=== PATIENT | male | born 2000 | race Caucasian/White ===

== ENCOUNTER 2022-05-27 19:32 | Emergency (ER) | payer OTHER, SELFPAY ==
[2022-05-27 19:32] VITALS: BP 127/73; PULSE 110; RESP 16; TEMP 36.7; O2SAT 99; BMI 24.3
[2022-05-27 20:10] LABS: Basophils # 0.1 K/mm3 (0-0.2); Basophils % 1.3 % (0.1-2.0); Eosinophils # 0.2 K/mm3 (0.0-0.4); Eosinophils % 2.8 % (0.1-12.0); Hematocrit 49.2 % (42.0-52.0); Hemoglobin 16.2 g/dL (14.1-18.0); Lymphocytes # 0.7 K/mm3 (0.7-4.5); Lymphocytes % 11.2 % (10-50); Mean Corpuscular HGB Conc 32.9 g/dL (31.8-35.4); Mean Corpuscular Hemoglobin 30.2 pg (27.0-31.2); Mean Corpuscular Volume 91.8 fl (80-94); Mean Platelet Volume 8.1 fl (7.4-10.4); Monocytes # 0.4 K/mm3 (0.1-1.0); Monocytes % 6.8 % (1.7-9.3); Neutrophils # 4.9 K/mm3 (1.8-7.8); Neutrophils % 77.9 % (37.0-80.0); Platelet Count 236 K/mm3 (142-424); Red Blood Count 5.35 M/mm3 (4.60-6.20); Red Cell Distribution Width 13.3 % (11.5-17.5); White Blood Count 6.3 K/mm3 (4.8-10.8)
[2022-05-27 20:22] LABS: Chloride 103 mmol/L (98-107); Sodium 140 mmol/L (136-145)
[2022-05-27 20:25] LABS: Alanine Aminotransferase 19 U/L (12-78); Albumin Level 4.7 g/dl (3.5-5.0); Albumin/Globulin Ratio 1.4 (1.1-1.8); Alkaline Phosphatase 95 U/L (38-126); Aspartate Amino Transferase 29 U/L (17-59); Bilirubin,Total 1.4 mg/dl (0.2-1.3); Blood Urea Nitrogen 15 mg/dl (9-20); Calcium 9.1 mg/dl (8.4-10.2); Carbon Dioxide 26 mmol/L (22.0-30.0); Creatinine Clearance Estimated 167 mL/min (50-200); Estimated Glomerular Filt Rate 107 ml/min (>60); GFR (African American) 129 ML/MIN (>60); Globulin 3.3 g/dL (1.3-3.2); Glucose 109 mg/dl (74-100)
[2022-05-27 20:35] LABS: Microscopic, Urine URINE MICROSCOPIC (MICROSCOPIC)
[2022-05-27 20:36] LABS: Appearance,Urine CLEAR (Clear); Blood, Urine TRACE-I (Negative); Color,Urine DK YELLOW (Yellow); Glucose,Urine (UA) TRACE (Negative); Ketones,Urine TRACE (Negative); Leukocyte Esterase,Urine Negative (Negative); Nitrate,Urine POSITIVE (Negative); Protein,Urine 2+ (Negative); Specific Gravity, Urine 1.015 (1.005-1.030)
[2022-05-27 20:44] LABS: Bilirubin,Urine 1+ (Negative)
[2022-05-27 21:25] LABS: Bacteria,Urine Trace /lpf; WBC,Urine Occasional #/hpf (0-3)
--- NOTE | 2022-05-27 21:44 | [facility].EDNVD ---
Discharge Plan Disposition Patient Disposition: Home, Self-Care Chief Complaint: Nausea/Vomiting/Diarrhea Referrals Follow up/Referrals: Camille Jenkins MD [Primary Care Provider] - See instructions Clinical Impressions Clinical Impression: Gastroenteritis Stand Alone Forms Stand Alone Forms: Work/School Release Instructions Patient Instructions: DI for Diarrhea and Traveler's Diarrhea -- Adult Discharge ED Provider: Jayson Nicole Nausea/Vomiting/Diarrhea HPI General Chief complaint: Nausea/Vomiting/Diarrhea Stated complaint: V&D for 12 hrs Time Seen by Provider: 05/27/22 21:44 Mode of Arrival: Ambulatory Source of Information: Patient and Medical Record Limitations: No Limitations Description of Symptoms (Recalled from ER Triage Doc. by RN): pt c/o v/d that started @ 5:30 this moring History of Present Illness HPI Narrative: acute episode of nausea and vomiting with diarrhea after eating deer meat- with same sx MD complaint: nausea, vomiting and diarrhea Onset (ago): hour(s) Associated Abdominal Pain: Yes Location of pain: diffuse Severity: moderate Consistency: intermittent Context: possible food poisoning Associated symptoms: denies other symptoms Related Data Allergies Allergy/AdvReac Type Severity Reaction Status Date / Time MORPHINE Allergy Severe I-RASH Uncoded 05/04/17 15:09 Cefdinir Allergy Intermediate ? Uncoded 05/04/17 15:09 Cephalosporin Allergy Unknown Uncoded 05/04/17 15:09 EGG ALBUMIN Allergy Unknown BROKE OUT Uncoded 05/04/17 15:09 From Penicillin V Potassium Allergy Unknown Uncoded 05/04/17 15:09 Penicillin Allergy Unknown Uncoded 05/04/17 15:09 Promethazine Allergy Unknown Uncoded 05/04/17 15:09 [facility] Disclaimer: The information contained in this section may have been updated after the patient was seen, as this information can be updated by other users. Social History Smoking Status: Never smoker alcohol intake: never current occupational status: student Travel in the last 8 weeks: None ROS Obtained: Yes All systems reviewed & no additional complaints except as documented Physical Exam General General appearance: alert Head Head exam: normocephalic Eye Eye exam: Present PERRL and EOMI ENT ENT exam: Present mucous membranes moist Neck Neck exam: Present trachea midline Respiratory Respiratory exam: Present normal lung sounds bilaterally Cardiovascular Cardiovascular exam: Present regular rate Abdominal Exam Abdominal exam: Present soft Extremities Exam Extremities exam: Present full ROM Neurological Exam Neurological exam: Present alert, oriented X3 and CN II-XII intact; Absent motor sensory deficit Psychiatric Psychiatric exam: Present normal affect Skin Skin exam: Absent rash Medical Decision Making Medical Records Medical records reviewed: Yes I reviewed the patient's medical records. Surendra Inquiry Pt receiving controlled substance: No Vital Signs: 05/27/22 19:32 Temperature 98.1 F Temperature Source Oral Pulse Rate [Right] 110 H Respiratory Rate 16 Blood Pressure [Right Arm] 127/73 Blood Pressure Mean [Right Arm] 91 02 Sat by Pulse Oximetry 99 Lab Data Lab results reviewed: Yes I reviewed the patient's lab results. Lab Results 05/27/22 19:55: WBC 6.3, RBC 5.35, Hgb 16.2, Hct 49.2, MCV 91.8, MCH 30.2, MCHC 32.9, RDW 13.3, Plt Count 236, MPV 8.1, Neut % (Auto) 77.9, Lymph % (Auto) 11.2, [place] % (Auto) 6.8, Eos % (Auto) 2.8, Baso % (Auto) 1.3, Neut # (Auto) 4.9, Lymph # (Auto) 0.7, [place] # (Auto) 0.4, Eos # (Auto) 0.2, Baso # (Auto) 0.1 05/27/22 19:55: Sodium 140, Potassium 4.0, Chloride 103, Carbon Dioxide 26, Anion Gap 15.0, BUN 15, Creatinine 0.90, Estimated Creat Clear 167, Estimated GFR 107, Est GFR ( Amer) 129, Glucose 109 H, Calcium 9.1, Total Bilirubin 1.4 H, AST 29, ALT 19, Alkaline Phosphatase 95, Total Protein 8.0, Albumin 4.7, Globulin 3.3 H, Albumin/Globulin Ratio 1.4 05/27/22 20:14: Urine Color Dk yellow
[2022-05-27 21:46] VITALS: BP 121/70; PULSE 90; RESP 16; TEMP 36.7; O2SAT 99
== END 2022-05-27 21:48 | disposition home or self-care (01) ==
PROVIDERS: Emergency Provider Emergency Medicine; PCP Family Medicine
DX: K52.9 Noninfective gastroenteritis and colitis, unspecified (principal)
CPT/HCPCS: 80053; 81001; 85025; 96361; 96374; 96375; 99285; J2405